=== PATIENT | male | born 1955 | race Caucasian/White ===

== ENCOUNTER 2017-06-01 16:20 | Emergency (ER) | payer BC ==
[2017-06-01 16:33] VITALS: BP 148/89
[2017-06-01] MEDS ORDERED: DOXYcycline CAP(*) 100 MG PO ONE (16:43)
--- NOTE | 2017-06-01 17:14 | UC ---
General HPI - HPI Summary HPI Summary: ONE HOUR [employer] TICK REMOVED TICK FROM UNDERNEATH RIGHT UNDERARM BY PATIENT. RED BURNING TENDER AREA WHERE TICK HAD BEEN EMBEDDED <24HRS. NO FEVERS. FEELING ' OUT OF SORTS' SINCE DISCOVERY OF TICK. NO JOINT SWELLING, OR PAIN. - History of Current Complaint Chief Complaint: UCSkin Stated Complaint: TICK BITE Time Seen by Provider: 06/01/17 16:32 Hx Obtained From: Patient Onset/Duration: Gradual Onset, Lasting Hours Onset Severity: Mild Current Severity: Mild Pain Intensity: 0 Associated Signs & Symptoms: Negative: Cough, Fever, Headache, Nausea, Syncope, Weakness - Allergy/Home Medications Allergies/Adverse Reactions: Allergies Allergy/AdvReac Type Severity Reaction Status Date / Time No Known Allergies Allergy Verified 06/01/17 16:26 Home Medications: Home Medications Azelastine 0.15% NASAL(NF) [Astepro 0.15% NASAL (NF)] 1 spray BOTH NARES BID [History Confirmed 06/01/17] Fluticasone NASAL * [Flonase *] 1 spray BOTH NARES BID 06/01/17 [History Confirmed 06/01/17] LevoCETirizine TAB (NF) [Xyzal TAB (NF)] 1 tab PO QAM 06/01/17 [History Confirmed 06/01/17] PMH/Surg Hx/FS Hx/Imm Hx Previously Healthy: Yes - Surgical History Surgical History: Yes Surgery Procedure, Year, and Place: Lt [facility]BOW - ARTHROSCOPIC - - Family History Known Family History: Negative: Respiratory Disease, Blood Disorder - Social History Occupation: Employed Full-time Lives: With Family Alcohol Use: Occasionally Substance Use Type: None Smoking Status (MU): Current Some Day Smoker Review of Systems Constitutional: Negative Skin: Rash - RIGHT AXILLA Eyes: Negative ENT: Negative Respiratory: Negative Cardiovascular: Negative Gastrointestinal: Negative Genitourinary: Negative Motor: Negative Neurovascular: Negative Musculoskeletal: Negative Neurological: Negative Psychological: Negative Is Patient Immunocompromised?: No All Other Systems Reviewed And Are Negative: Yes Physical Exam Triage Information Reviewed: Yes Appearance: Well-Appearing, No Pain Distress, Well-Nourished Vital Signs: Initial Vital Signs Temp 98.3 F 06/01/17 16:29 Pulse 83 06/01/17 16:29 Resp 16 06/01/17 16:29 BP 148/89 06/01/17 16:29 Pulse Ox 99 06/01/17 16:29 Vital Signs Reviewed: Yes Eye Exam: Normal ENT Exam: Normal ENT: Positive: Normal ENT inspection, TMs normal Dental Exam: Normal Neck exam: Normal Neck: Positive: Supple, Nontender, No Lymphadenopathy Respiratory Exam: Normal Respiratory: Positive: Chest non-tender, Lungs clear, Normal breath sounds, No respiratory distress Cardiovascular Exam: Normal Cardiovascular: Positive: RRR, No Murmur, Pulses Normal Abdominal Exam: Normal Musculoskeletal Exam: Normal Musculoskeletal: Positive: Strength Intact, ROM Intact Neurological Exam: Normal Psychological Exam: Normal Skin: Positive: rashes - ERYTHEMATOUS 0.5CM X0.5CM AREA RIGHT AXILLA Course/Dx - Differential Dx - Multi-Symptom Differential Diagnoses: Metabolic Abnormality, Sepsis Provider Diagnoses: TICK BITE PROPHYLAXIS Discharge - Discharge Plan Condition: Stable Disposition: HOME Patient Education Materials: Lyme Disease (ED), Tick Bite (ED) Referrals: Tammy Mckoy MD [Medical Doctor] - Images Front/Back of Body, Lg ([place]): 1 - ERYTHEMATOUS 0.5CM X0.5CM AREA RIGHT AXILLA
== END 2017-06-01 16:51 | disposition home or self-care (01) ==
LOC: UCEAST 16:20
DX: S40.861A Insect bite (nonvenomous) of right upper arm, initial encounter (principal); W57.XXXA Bitten or stung by nonvenomous insect and other nonvenomous arthropods, initial encounter; Y93.9 Activity, unspecified; Y92.9 Unspecified place or not applicable; Y99.9 Unspecified external cause status; F17.200 Nicotine dependence, unspecified, uncomplicated
CPT/HCPCS: 99212; A9270-GY; G0463

== ENCOUNTER 2017-12-06 17:55 | Emergency (ER) | payer BC ==
[2017-12-06 19:40] LABS: ABS Basophils 0.2 10^3/ul (0-0.2); ABS Eosinophils 0.1 10^3/ul (0-0.6); ABS Lymphocytes 2.9 10^3/ul (1.0-4.8); ABS Monocytes 1.2 10^3/ul (0-0.8); ABS Neutrophils 11.1 10^3/ul (1.5-7.7); ABS Nucleated RBC 0 10^3/ul; Eosinophil % 0.4 % (0-6); Hematocrit 41 % (42-52); Hemoglobin 14.1 g/dl (14.0-18.0); Lymphocyte % 18.7 % (25-47); Mean Corpuscular HGB Conc 34 g/dl (31-36); Mean Corpuscular Hemoglobin 31 pg (27-31); Mean Corpuscular Volume 90 fL (80-94); Nucleated Red Blood Cells % 0; Platelet Count 262 10^3/ul (150-450); Red Blood Count 4.62 10^6/ul (4.0-5.4); Red Cell Distribution Width 13 % (10.5-15); White Blood Count 15.4 10^3/ul (3.5-10.8)
[2017-12-06 19:57] LABS: EGFR Non-African American 32.4 (>60)
[2017-12-06 20:19] LABS: Urine Appearance Clear; Urine Blood 2+ (Negative); Urine Color Yellow; Urine Ketones Negative (Negative); Urine Protein Negative (Negative); Urine Specific Gravity 1.015 (1.010-1.030); Urine Urobilinogen Negative (Negative)
--- NOTE | 2017-12-06 20:22 | RAD ---
Indication: Left flank pain. CT of the abdomen and pelvis was performed without oral or IV contrast administration. Coronal and sagittal reconstructed images were obtained. Lung bases demonstrate no pleural fluid, pneumonia or pneumothorax. Heart demonstrates no pericardial effusion. Liver is normal in size. No focal lesions or intrahepatic ductal dilatation is noted. The gallbladder demonstrates no calcified gallstones. No pericholecystic fluid or wall thickening is identified. The spleen is normal in size. No adrenal masses are noted. The pancreas demonstrates no mass or pancreatic duct dilatation. There is left hydronephrosis present. There is a calculi in the left mid ureter at the pelvic inlet measuring up to 4 mm. The right kidney is unremarkable. The appendix is visualized and is unremarkable. No dilated loops of bowel are noted. Urinary bladder is otherwise unremarkable. IMPRESSION: 4 mm calculus in the distal left ureter at the L5 level. Left hydronephrosis is noted. Normal appendix.
[2017-12-06] MEDS ORDERED: Tamsulosin CAP* 0.4 MG PO ONE (20:32)
[2017-12-06] MEDS ORDERED: HYDROcodone/ACETAMIN 5-325 MG* 1 TAB PO PRN ×2 (20:33→20:43)
[2017-12-06] MEDS ORDERED: Ibuprofen TAB* 600 MG PO ONE (20:33)
[2017-12-06] MEDS ORDERED: Ondansetron ODT TAB* 4 MG PO PRN (20:34)
[2017-12-06] MEDS ORDERED: Ondansetron ODT TAB* 4 MG PO ONE (20:43)
--- NOTE | 2017-12-06 21:21 | ED ---
Cayla Mendez Thomas, scribed for Nickolas Monreal MD on 12/06/17 at 1944 . Abdominal Pain/Male - HPI Summary HPI Summary: The patient is a 62 year old male complaining of left-sided flank pain that began 24 hours ago. The pain is intermittent. The pain is alleviated by lying down. He took ibuprofen for the pain. He denies abdominal pain. He did not take any BMs today. Two days ago, the patient and his went to a restaurant and both had nausea and vomiting afterwards. - History of Current Complaint Chief Complaint: EDFlankPain Stated Complaint: FLANK PAIN Hx Obtained From: Patient Onset/Duration: Lasting Hours, Still Present Timing: Intermittent Severity Currently: Moderate Pain Intensity: 7 Pain Scale Used: 0-10 Numeric Location: Flank - left Aggravating Factor(s): Nothing Alleviating Factor(s): Other: - Lying down Associated Signs And Symptoms: Positive: Nausea, Vomiting - Allergies/Home Medications Allergies/Adverse Reactions: Allergies Allergy/AdvReac Type Severity Reaction Status Date / Time No Known Allergies Allergy Verified 12/06/17 18:04 Home Medications: Home Medications Azelas/Fluticasone/Sod Chlorid 1 spray BOTH NARES DAILY 12/06/17 [History Confirmed 12/06/17] [place]-3 Fatty Acids (Nf) [Fish Oil (NF)] 1,000 mg PO DAILY 12/06/17 [History Confirmed 12/06/17] PMH/Surg Hx/FS Hx/Imm Hx Endocrine/Hematology History: Denies: Hx Diabetes, Hx Thyroid Disease Cardiovascular History: Reports: Hx Hypertension Denies: Hx Hypercholesterolemia, Hx Pacemaker/ICD, Hx Peripheral Vascular Disease Respiratory History: Denies: Hx Asthma, Hx Chronic Obstructive Pulmonary Disease (COPD) GI History: Denies: Hx Ulcer History: Denies: Hx Kidney Stones, Hx Renal Disease Musculoskeletal History: Denies: Hx Arthritis, Hx Rheumatoid Arthritis, Hx Osteoporosis Sensory History: Denies: Hx Cataracts, Hx Contacts or Glasses, Hx Glaucoma, Hx Hearing Aid Opthamlomology History: Denies: Hx Cataracts, Hx Contacts or Glasses, Hx Glaucoma Neurological History: Denies: Hx Headaches, Hx Seizures, Hx Transient Ischemic Attacks (TIA) Psychiatric History: Denies: Hx Anxiety, Hx Depression, Hx Panic Disorder - Surgical History Surgery Procedure, Year, and Place: Lt [facility]BOW - ARTHROSCOPIC - - Immunization History Immunizations Up to Date: Yes Infectious Disease History: No Infectious Disease History: Denies: Hx Clostridium Difficile, Hx Hepatitis, Hx Human Immunodeficiency Virus (HIV), Hx of Known/Suspected MRSA, Hx Shingles, Hx Tuberculosis, Hx Known/ Suspected VRE, Hx Known/Suspected VRSA, History Other Infectious Disease, Traveled Outside the [place] in Last 30 Days - Family History Known Family History: Negative: Respiratory Disease, Blood Disorder - Social History Alcohol Use: Occasionally Substance Use Type: Reports: None Hx Tobacco Use: No Smoking Status (MU): Never Smoked Tobacco Review of Systems Negative: Fever Positive: Abdominal Pain - left flank, Vomiting, Nausea All Other Systems Reviewed And Are Negative: Yes Physical Exam - Summary Physical Exam Summary: Appearance: The patient is well-nourished in no acute distress and in no acute pain. Skin: The skin is warm and dry and skin color reflects adequate perfusion. HEENT: The head is normocephalic and atraumatic. The pupils are equal and reactive. The conjunctivae are clear and without drainage. Nares are patent and without drainage. Mouth reveals moist mucous membranes and the throat is without erythema and exudate. The external ears are intact. The ear canals are patent and without drainage. The tympanic membranes are intact. Neck: the neck is supple with full range of motion and non-tender. There are no carotid bruits. There is no neck vein distension. Respiratory: Chest is non-tender. Lungs are clear to auscultation and breath sounds are symmetrical and equal. Cardiovascular: Heart is regular rate and rhythm. There is no murmur or rub auscultated. There is no peripheral edema and pulses are symmetrical and equal. Abdomen: The abdomen is soft and non-tender. There are normal bowel sounds heard in all four quadrants and there is no organomegaly palpated. Musculoskeletal: There is no back tenderness noted. Extremities are non-tender with full range of motion. There is good capillary refill. There is no peripheral edema or calf tenderness elicited. Neurological: Patient is alert and oriented to person, place and time. The patient has symmetrical motor strength in all four extremities. Cranial nerves are grossly intact. Deep tendon reflexes are symmetrical and equal in all four extremities. Psychiatric: The patient has an appropriate affect and does not exhibit any anxiety or depression. Triage Information Reviewed: Yes Vital Signs On Initial Exam: Initial Vitals Temp Pulse Resp BP Pulse Ox 99 F 80 15 149/78 98 12/06/17 18:07 12/06/17 18:07 12/06/17 18:07 12/06/17 18:07 12/06/17 18:07 Vital Signs Reviewed: Yes Diagnostics - Vital Signs Vital Signs Temp Pulse Resp BP Pulse Ox 12/06/17 18:07 99 F 80 15 149/78 98 - Laboratory Lab Results: Lab Results 12/06/17 Range/Units 19:29 WBC 15.4 H (3.5-10.8) 10^3/ul RBC 4.62 (4.0-5.4) 10^6/ul Hgb 14.1 (14.0-18.0) g/dl Hct 41 L (42-52) % MCV 90 (80-94) fL MCH 31 (27-31) pg MCHC 34 (31-36) g/dl RDW 13 (10.5-15) % Plt Count 262 (150-450) 10^3/ul MPV 7.0 L (7.4-10.4) um3 Neut % (Auto) 71.9 (38-83) % Lymph % (Auto) 18.7 L (25-47) % [place] % (Auto) 7.7 H (0-7) % Eos % (Auto) 0.4 (0-6) % Baso % (Auto) 1.3 (0-2) % Absolute Neuts (auto) 11.1 H (1.5-7.7) 10^3/ul Absolute Lymphs (auto) 2.9 (1.0-4.8) 10^3/ul Absolute Monos (auto) 1.2 H (0-0.8) 10^3/ul Absolute Eos (auto) 0.1 (0-0.6) 10^3/ul Absolute Basos (auto) 0.2 (0-0.2) 10^3/ul Absolute Nucleated RBC 0 10^3/ul Nucleated RBC % 0 Result Diagrams: 12/06/17 19:29 12/06/17 19:29 Lab Statement: Any lab studies that have been ordered have been reviewed, and results considered in the medical decision making process. - CT CT Abdomen/Pelvis CT Interpretation: Positive (See Comments) - IMPRESSION: 4 mm calculus in the distal left ureter at the L5 level. Left hydronephrosis is noted. Normal appendix. Dr. Monreal has reviewed this report. CT Interpretation Completed By: Radiologist Re-Evaluation - Re-Evaluation First Eval Re-Evaluation Time: 20:29 Comment: Results discussed. Patient will be discharged. Abdominal Pain Fem Course/Dx - Course Course Of Treatment: Mr. Menjivar presented with about 24 hours of intermittent left flank pain and was found to have a 4 mm calculus in the distal left ureter with a normal U/A and moderate hydronephrosis. I will treat him with [place] and Flomax. His BUN and creatinine are a litlle elevated but he had a recent AGE and he has received IV NS here so I think he is OK to take ibuprofen for a few days only. He sounds like he has been having spells of ureteral spasm and I think it is necessary. He will F/U with Jayne Matthews and [facility]. - Diagnoses Provider Diagnoses: Kidney stones Discharge - Sign-Out/Discharge Documenting (check all that apply): Discharge - Discharge Plan Condition: Stable Disposition: HOME Prescriptions: HYDROcodone/ACETAMIN 5-325 MG* [[place] 5-325 TAB*] 1 tab PO Q6H PRN #20 tab MDD 4 PRN Reason: Pain Ondansetron ODT TAB* [Zofran Odt TAB*] 4 mg PO Q6H PRN #20 tab.odt PRN Reason: Nausea/Vomiting Tamsulosin CAP* [Flomax CAP*] 0.4 mg PO DAILY #7 cap Patient Education Materials: Ibuprofen (By mouth), Kidney Stones (ED) Referrals: Aknush Matthews MD [Medical Doctor] - 2 Days Jacky Botello MD [Medical Doctor] - 2 Days Additional Instructions: Follow up with urology in two days. I have given you referrals to Dr. Botello and Dr. Matthews. I recommend ibuprofen for the pain. Return to the emergency department for new or worsening symptoms. - Billing Disposition and Condition Condition: STABLE Disposition: HOME The documentation as recorded by the Cayla sotelo Thomas accurately reflects the service I personally performed and the decisions made by me, Nickolas Monreal MD.
[2017-12-06] MEDS ORDERED: O ndansetron ODT 4MG 2TAB PRPK 4 MG PAK PO ONE (21:25)
[2017-12-06 21:38] VITALS: BP 129/78
== END 2017-12-06 21:41 | disposition home or self-care (01) ==
LOC: ED 17:55
DX: N13.2 Hydronephrosis with renal and ureteral calculous obstruction (principal); R11.2 Nausea with vomiting, unspecified; I10 Essential (primary) hypertension
CPT/HCPCS: 36415; 74176; 80053; 81003; 81015; 83605; 85025; 86140; 87086; 99283; A9270-GY

== ENCOUNTER 2017-12-10 07:38 | Observation (INO) | payer BC ==
[2017-12-10] MEDS ORDERED: NS 0.9% 1000 ML* 1,000 ML IV ONE ×2 (07:44→10:30)
[2017-12-10] MEDS ORDERED: Morphine INJ* 4 MG/ML 1 ML CARPUJECT IV PRN (07:44)
[2017-12-10] MEDS ORDERED: Ondansetron INJ* 2 MG/ML VIAL IV ONE (07:44)
[2017-12-10] MEDS ORDERED: Ketorolac INJ* 30 MG/ML 1 ML VIAL IV PUSH ONE (07:47)
[2017-12-10] MEDS ORDERED: Morphine VIAL* 4 MG/ML VIAL (1 ml vial) IV ONE ×2 (07:52→10:58)
[2017-12-10 08:10] LABS: ABS Basophils 0.2 10^3/ul (0-0.2); ABS Eosinophils 0.1 10^3/ul (0-0.6); ABS Lymphocytes 2.8 10^3/ul (1.0-4.8); ABS Monocytes 0.9 10^3/ul (0-0.8); ABS Neutrophils 12.4 10^3/ul (1.5-7.7); ABS Nucleated RBC 0 10^3/ul; Eosinophil % 0.7 % (0-6); Hematocrit 40 % (42-52); Hemoglobin 13.7 g/dl (14.0-18.0); Mean Corpuscular HGB Conc 35 g/dl (31-36); Mean Corpuscular Hemoglobin 31 pg (27-31); Mean Corpuscular Volume 89 fL (80-94); Mean Platelet Volume 7.1 um3 (7.4-10.4); Nucleated Red Blood Cells % 0; Platelet Count 301 10^3/ul (150-450); Red Blood Count 4.44 10^6/ul (4.0-5.4); Red Cell Distribution Width 13 % (10.5-15); White Blood Count 16.4 10^3/ul (3.5-10.8)
[2017-12-10] MEDS ORDERED: Morphine VIAL* 4 MG/ML VIAL (1 ml vial) IV PRN ×2 (08:15→13:10)
[2017-12-10 08:26] LABS: EGFR Non-African American 33.6 (>60)
--- NOTE | 2017-12-10 08:40 | RAD ---
HISTORY: Flank pain COMPARISONS: CT dated December 06, 2017 VIEWS: Frontal views of the abdomen. FINDINGS: BOWEL: There is a nonspecific bowel gas pattern, with nondilated small bowel gas noted. There is a large amount of stool within the colon. CALCULI: There are no appreciable calculus, though evaluation is limited by overlying bowel. The left ureteral stone noted on the previous CT examination is not well-visualized on the current examination. BONES AND SOFT TISSUES: There are no osseous abnormalities. OTHER FINDINGS: The lung bases are clear. There is no subphrenic gas. IMPRESSION: THE LEFT URETERAL STONE NOTED ON THE PREVIOUS CT EXAMINATION IS NOT WELL-VISUALIZED ON THE CURRENT EXAMINATION.
[2017-12-10 10:29] LABS: Urine Appearance Clear; Urine Blood Negative (Negative); Urine Color Yellow; Urine Ketones 1+ (Negative); Urine Protein Negative (Negative); Urine Specific Gravity 1.025 (1.010-1.030); Urine Urobilinogen Negative (Negative)
[2017-12-10] MEDS ORDERED: Tamsulosin CAP* 0.4 MG PO ONE (10:35)
--- NOTE | 2017-12-10 12:59 | ED ---
Conrado Mendez Angela, scribed for Devin Fournier MD on 12/10/17 at 0748 . Abdominal Pain/Male - HPI Summary HPI Summary: This pt is a 62 y/o male presenting to [facility] c/o left flank pain x5 days. Pt reports his pain has been worsening in intensity since 5 days ago. He was seen in the ED 4 days ago and had a CT that showed 4 mm calculus in the distal left ureter. Pt was discharged home with follow up from Dr. Matthews. He saw Dr. Matthews 2 days ago and was told that he had a 1.5 cm left kidney stone and this would pass on its own. Today pt presents with increased pain and rates his pain 10/10 in severity. He additionally notes nausea. - History of Current Complaint Chief Complaint: EDFlankPain Stated Complaint: FLANK PAIN/ABD PAIN Time Seen by Provider: 12/10/17 07:42 Hx Obtained From: Patient Onset/Duration: Lasting Days, Still Present Timing: Lasting Days Severity Currently: Severe Pain Intensity: 10 Pain Scale Used: 0-10 Numeric Location: Flank - left Radiates: No Aggravating Factor(s): Nothing Alleviating Factor(s): Nothing Associated Signs And Symptoms: Positive: Nausea. Negative: Fever, Chest Pain, Back Pain - Allergies/Home Medications Allergies/Adverse Reactions: Allergies Allergy/AdvReac Type Severity Reaction Status Date / Time No Known Allergies Allergy Verified 12/10/17 07:41 Home Medications: Home Medications Azelastine/Fluticasone HEATH(NF [Dymista(NF)] 1 spray BOTH NARES DAILY 12/10/17 [ History Confirmed 12/10/17] PMH/Surg Hx/FS Hx/Imm Hx Endocrine/Hematology History: Denies: Hx Diabetes, Hx Thyroid Disease Cardiovascular History: Reports: Hx Hypertension Denies: Hx Hypercholesterolemia, Hx Pacemaker/ICD, Hx Peripheral Vascular Disease Respiratory History: Denies: Hx Asthma, Hx Chronic Obstructive Pulmonary Disease (COPD) GI History: Denies: Hx Ulcer History: Denies: Hx Kidney Stones, Hx Renal Disease Musculoskeletal History: Denies: Hx Arthritis, Hx Rheumatoid Arthritis, Hx Osteoporosis Sensory History: Denies: Hx Cataracts, Hx Contacts or Glasses, Hx Glaucoma, Hx Hearing Aid Opthamlomology History: Denies: Hx Cataracts, Hx Contacts or Glasses, Hx Glaucoma Neurological History: Denies: Hx Headaches, Hx Seizures, Hx Transient Ischemic Attacks (TIA) Psychiatric History: Denies: Hx Anxiety, Hx Depression, Hx Panic Disorder - Surgical History Surgery Procedure, Year, and Place: Lt ELBOW - ARTHROSCOPIC - Infectious Disease History: No Infectious Disease History: Denies: Hx Clostridium Difficile, Hx Hepatitis, Hx Human Immunodeficiency Virus (HIV), Hx of Known/Suspected MRSA, Hx Shingles, Hx Tuberculosis, Hx Known/ Suspected VRE, Hx Known/Suspected VRSA, History Other Infectious Disease, Traveled Outside the [place] in Last 30 Days - Family History Known Family History: Negative: Respiratory Disease, Blood Disorder - Social History Alcohol Use: Occasionally Substance Use Type: Reports: None Hx Tobacco Use: No Smoking Status (MU): Never Smoked Tobacco Review of Systems Negative: Fever, Chills ENT: Negative Cardiovascular: Negative Positive: Abdominal Pain Genitourinary: Negative Musculoskeletal: Negative Neurological: Negative All Other Systems Reviewed And Are Negative: Yes Physical Exam - Summary Physical Exam Summary: VITAL SIGNS: Reviewed. GENERAL: Patient is a well-developed and nourished male who is lying comfortable in the stretcher. Patient is in distress secondary to pain. HEAD AND FACE: Normocephalic and atraumatic. EYES: PERRLA, EOMI x 2, No injected conjunctiva. EARS: Hearing grossly intact. Ear canals and tympanic membranes are WNL. MOUTH: Oropharynx within normal limits. NECK: Supple, trachea is midline, no adenopathy, no JVD. CHEST: Symmetric, no tenderness at palpation LUNGS: Clear to auscultation bilaterally. No wheezing or crackles. CVS: RRR, S1 and S2 present, no murmurs or gallops appreciated. ABDOMEN: Soft. Left flank pain. Left costovertebral angle tenderness. No signs of distention. Positive bowel sounds. No rebound no guarding, and no masses palpated. No abdominal bruit or pulsations. EXTREMITIES: FROM in all major joints, no edema, no cyanosis or clubbing. NEURO: Alert and oriented x 3. No acute neurological deficits. Speech is normal. SKIN: Dry and warm Triage Information Reviewed: Yes Vital Signs On Initial Exam: Initial Vitals Temp Pulse Resp BP Pulse Ox 98.6 F 78 20 145/85 100 12/10/17 07:38 12/10/17 07:38 12/10/17 07:38 12/10/17 07:38 12/10/17 07:38 Vital Signs Reviewed: Yes Diagnostics - Vital Signs Vital Signs Temp Pulse Resp BP Pulse Ox 12/10/17 07:38 98.6 F 78 20 145/85 100 - Laboratory Result Diagrams: 12/10/17 07:57 12/10/17 07:57 Lab Statement: Any lab studies that have been ordered have been reviewed, and results considered in the medical decision making process. - Radiology Abdomen XR Xray Interpretation: Positive (See Comments) - IMPRESSION: The left ureteral stone noted on the previous CT examination is not well visualized on the current examination. Dr. Fournier has reviewed this radiology report. Radiology Interpretation Completed By: Radiologist - EKG 08:00 Cardiac Rate: NL EKG Rhythm: Sinus Rhythm - at 62 bpm EKG Interpretation: No ST elevations. Re-Evaluation - Re-Evaluation First Eval Re-Evaluation Time: 10:35 Comment: Pt is pain free and is comfortable. He will be given more fluids and Flomax. Abdominal Pain Fem Course/Dx - Course Assessment/Plan: This pt is a 62 y/o male presenting to [facility] c/o left flank pain x5 days. Pt reports his pain has been worsening in intensity since 5 days ago. He was seen in the ED 4 days ago and had a CT that showed 4 mm calculus in the distal left ureter. Pt was discharged home with follow up from Dr. Matthews. He saw Dr. Matthews 2 days ago and was told that he had a 1.5 cm left kidney stone and this would pass on its own. Today pt presents with increased pain and rates his pain 10/10 in severity. He additionally notes nausea. Initially the pt came with severe distress secondary to pain. We obtained an IV access and gave him IV fluids. He was given Toradol for the pain as he has history of kidney stone and left flank pain. The pain continued thus he was given morphine and Zofran, and his pain slightly improved. After 2 L of IV fluids, pt continues to have pain therefore he was given another dose of morphine and Flomax. I discussed the case with Dr. Matthews, urologist, who will take the pt to the OR. He recommends to admit the pt to the hospitalist for pain control. I discussed with Dr. Ballard, hospitalist, who has agreed to admit the pt. Pt is hemodynamically stable, alert and oriented x3. - Diagnoses Provider Diagnoses: Kidney stone, Renal colic, Intractable pain, Renal insufficiency - Provider Notifications Discussed Care Of Patient With: Ankush Matthews Time Discussed With Above Provider: 08:36 Instructed by Provider To: Other - I discussed pt care with Dr. Matthews, urologist, who will come see the pt in the ED. [12:29] I spoke with Dr. Ballard, hospitalist, who has agreed to admit the pt. Discharge - Sign-Out/Discharge Documenting (check all that apply): Discharge/Admit/Transfer - [place] [facility] [place]charge Plan Condition: Stable Disposition: ADMITTED TO [facility] Referrals: Burt Camacho MD [Primary Care Provider] - The documentation as recorded by the Conrado sotelo Angela accurately reflects the service I personally performed and the decisions made by , Devin Fournier MD.
[2017-12-10] MEDS ORDERED: Acetaminophen TAB* 325 MG PO PRN (13:04)
[2017-12-10] MEDS ORDERED: cefTRIAXone VIAL(*) 2,000 MG in NS 0.9% 50 ML* 50 ML IVPB ONE (13:06)
[2017-12-10] MEDS ORDERED: NS 0.9% 1000 ML* 1,000 ML IV SCH (13:15)
[2017-12-10] MEDS ORDERED: cefTRIAXone(*) 2 GM in NS 0.9% 100 ML* 100 ML IVPB ONE (14:00)
--- NOTE | 2017-12-10 16:04 | HP ---
CC: Dr. Camacho; Dr. Matthews* HISTORY AND PHYSICAL: DATE OF ADMISSION: 12/10/17 PRIMARY CARE PROVIDER: Dr. Camacho. ATTENDING PHYSICIAN WHILE IN THE HOSPITAL: Dr. Lucas Ballard* (report dictated by Deric Iyer NP). CHIEF COMPLAINT: Left flank pain. HISTORY OF PRESENT ILLNESS: Mr. Menjivar is a 62-year-old male patient. He has a history of nephrolithiasis, hypertension, hyperlipidemia, and a history of allergies. He comes into the ER today. He said he was seen here on Friday, diagnosed with nephrolithiasis and was being treated outpatient with Dr. Matthews. He says that he had intermittent flank pain throughout the weekend, but things were improving Friday. He saw Dr. Matthews. There was concern because his creatinine was little elevated, but the stone had moved down to the UVJ and they thought that it was going to pass. So, they continued with conservative management and actually, yesterday the patient felt well. He says he did not have any more discomfort. He said things were feeling better. He, unfortunately, though today around 3 to 4 in the morning, he had sudden onset of a sharp stabbing pain, it just got progressively worse, with associated nausea, in that left flank. No fevers or chills reported. No dysuria or frequency was reported with urination, but he was concerned because the pain just did not get better. It was getting much worse and he came into the ER. Preceding this, him and his significant other did have an episode of nausea, vomiting, and diarrhea after going out to eat on , but he has no longer had any more vomiting and no longer had any more diarrhea. He said he has had a formed bowel movement 2 days ago. He denied any chest pain or shortness of breath. He says he has been exercising pretty routinely even before this has happened, but he has not in the last few days. He says he can walk up a flight of stairs with no chest discomfort or chest pain. He came into the emergency department today, he was evaluated because it was found that he had elevated white count, because of the worsening pain, and the creatinine being elevated. We were asked to evaluate for admission for most likely ureteral stent placement. PAST MEDICAL HISTORY: Significant for: 1. Nephrolithiasis. 2. Hypertension. 3. Hyperlipidemia. 4. Seasonal allergies. PAST SURGICAL HISTORY: The patient has had a left elbow surgery only. MEDICATIONS: Home medications include: 1. Flomax 0.4 mg p.o. daily. 2. Zofran 4 mg every 6 hours as needed. 3. Fish oil 1000 mg p.o. daily. 4. Lisinopril 20 mg daily. 5. Levocetirizine 1 tablet p.o. daily. 6. [place] 1 tablet p.o. every 6 hours as needed. 7. Dymista 1 spray both nares daily. ALLERGIES TO MEDICATIONS: Include no known drug allergies. FAMILY HISTORY: Mother had a history of CVA and dementia. Father had an MS at 74. SOCIAL HISTORY: The patient does not smoke. He rarely drinks alcohol. Surrogate decision maker is his significant other, Heike. REVIEW OF SYSTEMS: There was no documented fever. He denies any significant weight change. There was no double vision. He denies having any ear discharge. There is no rhinorrhea. There is no sore throat. There was no thyroid enlargement. Denies having any chest pain. There was no orthopnea. He denies having any nocturnal dyspnea. He denies having any abdominal pain, with the exception he does have some right-sided flank pain. He did admit to having some nausea. There is no vomiting. No dysuria, there is no frequency. Denies having any seizure, there is no loss of consciousness. No pruritus and no skin ulceration. Review of 14 systems completed, all others negative. PHYSICAL EXAMINATION GENERAL: At this time, Mr. Menjivar is a 62-year-old male patient. He appears to be well nourished, well developed. He does not appear to be in any acute distress. He is sitting in the ED stretcher. VITAL SIGNS: Blood pressure 109/68, pulse of 59, respirations 18, O2 sat 95%, temperature 98.6. HEENT: Head is atraumatic, normocephalic. Eyes: EOMs are intact. Sclerae anicteric and not pale. Throat: Oral mucosa appears to be moist. No oropharyngeal erythema. NECK: Supple. LUNGS: Clear to auscultation bilaterally. No wheezes, rales, or rhonchi. HEART: Sounds S1 and S2. Regular rate and rhythm. No murmurs, rubs, or gallops. ABDOMEN: Soft, it was flat, nontender. Bowel sounds present. EXTREMITIES: Pulses were 2+ throughout. He is moving all 4 extremities with 5/ 5 strength. NEUROLOGIC: The patient is awake, alert, and is oriented x3. No gross focal deficits. SKIN: Intact. DIAGNOSTIC STUDIES/LAB DATA: Revealed a WBC of 16.4, RBC of 4.44, hemoglobin of 13.7, hematocrit of 40, platelet count of 301. Sodium of 138; potassium of 4.0; chloride of 105; bicarb of 21; his BUN was 24; creatinine was 2.03, his baseline is 1.2; his glucose is 115; calcium 9.8. Total bili 0.8, AST 13, ALT 15, alk phos 37. CRP is 87. Albumin of 3.9. Lipase of 20. Urine showed 1+ ketones. He did have an abdominal x-ray obtained today. He had a renal ultrasound done at Dr. Matthews's office. The x-ray today shows left ureteral stone noted on previous CT exam, but not well visualized on the current exam. He did have an EKG obtained today, which does show normal sinus rhythm, no ST elevations or T-wave inversions were noted. He did have abdominal pelvis CT scan on 12/06/17, which did show impression: 4- mm calculus in the distal left ureter at L5 level, left hydronephrosis noted. Normal appendix. He did have an ultrasound again, verbal report was that the stone was just at the UVJ and it was about 5 mm with mild hydro. Old medical records reviewed. ASSESSMENT AND PLAN: Mr. Menjivar is a 62-year-old male patient coming in the ED today with complaints of flank pain evaluation, found to have persistent elevated creatinine and in addition to this, concern for nephrolithiasis. He had been admitted under observation status for: 1. Nephrolithiasis. At this point, Dr. Matthews will be evaluating the patient. I suspect he probably does have some obstructive uropathy thus causing the elevation in his creatinine. He most likely will need cystoscopy with stent placement. Dr. Matthews plans on doing this later today around 5 o'clock and we will go ahead and continue to follow his creatinine and hydrate the patient and he will be n.p.o. 2. Elevated creatinine. Probably secondary to obstructive uropathy. Again, Dr. Matthews will be evaluating and he will most likely be placing a stent later today and this will be followed up outpatient, and continue with IV hydration. I suspect the creatinine to decrease after the stent was placed and I am holding any nephrotoxic agents. 3. Hypertension. His blood pressure is stable here in the 100. We will hold his lisinopril for time being. 4. Hyperlipidemia. Continue with diet modifications and his omega-3 fatty acids. 5. Seasonal allergies. Continue meds as prescribed. I have held them for now , but he can restart them when he is discharged. 6. Leukocytosis. This could be leukemoid reaction due to the pain. However, I am concerned that he could have underlying infection. Fortunately, his urine does appear to be clear. I am sending blood cultures and lactate. I will give him some antibiotics here. If he does stay overnight, I will continue the antibiotics. 7. DVT prophylaxis. Ordered SCDs. 8. Fluids, electrolytes, and nutrition. He is n.p.o. 9. Code status. Full code. TIME SPENT: On the admission was approximately 60 minutes, greater than half the time was spent [id number] with the patient obtaining my history and physical, the other half of the time was spent on going over the plan of care with the patient and implementing the place of care. I did discuss the plan of care with my attending, Dr. Ballard; he is in agreement. DERIC IYER, JULIA [id number]/[facility] #: [id number] HERNESTO
[2017-12-10] MEDS ORDERED: Morphine INJ* 10 MG/ML 1 ML CARPUJECT ONE (16:35)
[2017-12-10] MEDS ORDERED: Iohexol 180 (CONTRAST) 10 ML SDV IV ONE (18:00)
[2017-12-10] MEDS ORDERED: fentaNYL* 50 MCG/ML 2 ML VIAL (100 MCG VIAL) ONE (18:01)
[2017-12-10] MEDS ORDERED: Chloroprocaine 2%* 20 ML VIAL ONE (18:01)
[2017-12-10] MEDS ORDERED: Midazolam* 1 MG/ML 5 ML VIAL (5 MG) ONE (18:01)
[2017-12-10] MEDS ORDERED: Dexamethasone IV* 4 MG/ML 1 ML (4 MG) ONE (18:53)
[2017-12-10] MEDS ORDERED: HYDROmorphone INJ* 1 MG/ML CARPUJECT SYRINGE IV PRN (19:11)
[2017-12-10] MEDS ORDERED: Naloxone* 0.4 MG/ML 1 ML VIAL IV PRN (19:11)
[2017-12-10] MEDS ORDERED: fentaNYL* 50 MCG/ML 2 ML VIAL (100 MCG VIAL) IV PRN (19:11)
[2017-12-10] MEDS ORDERED: Ondansetron INJ* 2 MG/ML VIAL IV PRN (19:11)
[2017-12-10] MEDS ORDERED: Ondansetron INJ* 2 MG/ML VIAL ONE (19:14)
--- NOTE | 2017-12-10 21:35 | OP ---
CC: Dr. Camacho* OPERATIVE REPORT: DATE OF OPERATION: 12/10/17 - Inpatient, room SSU 332-01 DATE OF : 57 SURGEON: Ankush Matthews MD ANESTHESIOLOGIST: Cordell Vicente MD ANESTHESIA: Spinal. PRE-OP DIAGNOSES: 1. Distal left ureteral calculus. 2. Renal colic due to above. POST-OP DIAGNOSES: 1. Distal left ureteral calculi. 2. Renal colic due to above. OPERATIVE PROCEDURE: 1. Cystoscopy. 2. Left ureteroscopy and extraction of the distal left ureteral calculi. 3. Left retrograde pyelography and placement of left ureteral stent (6-Syrian). INDICATION FOR PROCEDURE: Mr. Menjivar is a 62-year-old white male who presented to the emergency room about 4 days ago with symptoms of left renal colic and was noted on noncontrast CT of the abdomen and pelvis to have a 3 to 4 mm calculus in the proximal to mid left ureter and small left renal calculi. He was managed conservatively. He was evaluated in my office 2 days ago and had a renal and full bladder ultrasound, which showed a 4 to 5 mm calculus in the distal left ureter just proximal to the ureterovesical junction. This was associated with mild hydronephrosis. He was continued to be managed conservatively. He presented to the emergency room early this morning with recurrence of the renal colic requiring multiple doses of narcotics for pain control. His serum creatinine was elevated at 2.0. His white count was 16,000. He was afebrile and his urinalysis was negative for infection. The patient was admitted for pain management and was given 2 g of Rocephin IV. He is taken to the operating room for stone extraction. PATHOLOGY: At cystoscopy, the penile and bulbar urethrae looked normal. The prostatic urethra measured about 2.5 cm in length and there was only minimal degree of obstruction by the prostate. The ureteral orifices were rather close to the bladder neck. Upon introduction of the guidewire into the left orifice, there was a gush of concentrated and rather bloody looking urine that drained out of the left orifice. Upon left ureteroscopy, there was a cluster of calculi in the distal left ureter just proximal to the intramural portion of the ureter. The larger fragment measured about 5 mm and there were 3 smaller fragments measuring about 2 mm each. Following drainage of the left kidney, retrograde pyelography showed minimal hydronephrosis. DESCRIPTION OF PROCEDURE: After successful spinal anesthesia, the patient was placed in the lithotomy position and was prepped and draped for cystoscopy. Cystoscopy was performed. The bladder was inspected and the above findings were noted. A flexible-tip guidewire was then introduced into the left orifice and positioned in the area of the renal pelvis. The gush of concentrated and rather bloody urine was noted from the orifice adjacent to the wire. A size 6.5 semi-rigid ureteroscope was then introduced inside the bladder. A flexible-tip guidewire was introduced through the port of the ureteroscope and the flexible tip was passed inside the left orifice alongside the guidewire. That allowed the atraumatic introduction of the ureteroscope into the left ureter. The stone fragments were then noted. It was felt they were small enough that should be able to be extracted without having to break them with the laser. A basket was deployed and the fragments were then extracted with minimal trauma to the ureteral wall. Final inspection showed edema at the site of the impacted stones. There was no injury to the ureter and no residual stone fragments noted. Retrograde pyelography was then performed. A size 6-Syrian stent was then placed with the proximal end coiling in the renal pelvis and the distal end coiling inside the bladder. There was good drainage of contrast from the kidney and no extravasation. The larger stone fragments were then extracted from the bladder and sent for stone analysis. The bladder was emptied and the cystoscope was removed. The patient tolerated the procedure well and left the operating room in good condition. The plan is to leave the stent in place for about 10 days. It will be removed in the office under local anesthesia. [id number]/[facility] #: [id number] [facility]ITALLevi
--- NOTE | 2017-12-10 21:40 | RAD ---
CPT II Codes: G9500 INDICATION: Left-sided stone removal. Fluoroscopic services provided for referring physician. 3 spot images demonstrates placement of a left ureteral stent isn't dilated left renal collecting system. IMPRESSION: Left ureteral stent in place.
[2017-12-10] MEDS ORDERED: HYDROcodone/ACETAMIN 5-325 MG* 1 TAB PO PRN (22:25)
[2017-12-10] MEDS ORDERED: Ondansetron ODT TAB* 4 MG PO PRN (22:49)
[2017-12-11 05:34] LABS: ABS Basophils 0 10^3/ul (0-0.2); ABS Eosinophils 0 10^3/ul (0-0.6); ABS Lymphocytes 1.4 10^3/ul (1.0-4.8); ABS Monocytes 0.4 10^3/ul (0-0.8); ABS Neutrophils 6.2 10^3/ul (1.5-7.7); ABS Nucleated RBC 0 10^3/ul; Eosinophil % 0.1 % (0-6); Hematocrit 34 % (42-52); Hemoglobin 11.6 g/dl (14.0-18.0); Lymphocyte % 17.1 % (25-47); Mean Corpuscular HGB Conc 35 g/dl (31-36); Mean Corpuscular Hemoglobin 31 pg (27-31); Mean Corpuscular Volume 90 fL (80-94); Mean Platelet Volume 7.4 um3 (7.4-10.4); Nucleated Red Blood Cells % 0; Platelet Count 225 10^3/ul (150-450); Red Blood Count 3.72 10^6/ul (4.0-5.4); Red Cell Distribution Width 13 % (10.5-15)
[2017-12-11 05:38] LABS: INR 1.02 (0.77-1.02)
[2017-12-11 05:49] LABS: EGFR Non-African American 40.1 (>60)
[2017-12-11] MEDS ORDERED: Azelastine/Fluticasone NAS(NF) BTL BOTH NARES SCH (09:00)
[2017-12-11] MEDS ORDERED: Cetirizine* 10 MG TAB PO SCH (09:00)
[2017-12-11] MEDS ORDERED: cefTRIAXone(*) 1 GM in NS 0.9% 50 ML* 50 ML IVPB ONE (09:00)
[2017-12-11] MEDS ORDERED: Lisinopril TAB* 10 MG PO SCH (09:00)
[2017-12-11] MEDS ORDERED: OMEGA-3 FATTY ACIDS (NF) 1,000 MG CAP PO SCH (09:00)
--- NOTE | 2017-12-11 10:27 | DS ---
CC: Dr. Camacho* DISCHARGE SUMMARY: DATE OF ADMISSION: 12/10/17 DATE OF DISCHARGE: 12/11/17 FINAL DIAGNOSES: 1. Left ureteral calculi. 2. Left renal colic due to left ureteral calculi. 3. Essential hypertension. 4. Hyperlipidemia. OPERATION: 1. Cystoscopy. 2. Left ureteroscopy and extraction of distal left ureteral calculi. 3. Left retrograde pyelography and placement of left ureteral stent on . HISTORY: Mr. Menjivar is a 62-year-old male who presented to the emergency room 4 days prior to admission with symptoms of left renal colic. There was no associated fever or chills. He had a noncontrast CT of the abdomen and pelvis , which showed a 4 mm calculus in the proximal left ureter associated with mild hydronephrosis and there were small left renal calculi. The patient was managed conservatively and was sent home on tamsulosin and on pain medication as needed. I evaluated him in my office 2 days later and the patient had a renal ultrasound in my office, which showed the calculus to have migrated into the distal left ureter just proximal to the ureterovesical junction. There was associated mild hydronephrosis, but there were reactive changes around the left kidney, possibly indicating extravasation. The patient continued to be managed conservatively and the next day he was feeling much better. There was a little bit of concern because his serum creatinine when he was discharged from the emergency room had gone up to 2.0. The plan was to repeat his serum creatinine on that day. The patient presented back to the emergency room early in the morning on with recurrent left renal colic. His white count was elevated at 16,000. His creatinine was still elevated at 2.0. He, however, was not febrile. The pain was rather difficult to control. It was then decided to take him to the operating room for stone extraction. PAST MEDICAL HISTORY: 1. He has hypertension and is maintained on lisinopril 20 mg daily. 2. He has hyperlipidemia, on fish oil. 3. He has seasonal allergies, on treatment. ALLERGIES: He denies any allergies to medications. SOCIAL HISTORY: He is a nonsmoker. FAMILY HISTORY: Negative for renal diseases or calculi. COURSE IN HOSPITAL: The patient was admitted for IV fluid and pain control. He was then taken to the operating room, where he underwent an uncomplicated cystoscopy, left ureteroscopy, and extraction of several small distal ureteral calculi with the largest measuring 5 mm. I suspect that some of the stones in the left kidney had migrated into the distal ureter and that explained a number of stones noted at ureteroscopy. The patient had also placement of a left ureteral stent. Because of his elevated white count on admission and the elevated creatinine, he was kept overnight for observation. He had a very smooth night. His pain completely resolved. Repeat lab work in the morning showed his creatinine down to 1.7 and the white count is down to 8000. The patient is being discharged home on his preadmission medications. Instructions were given for followup care. He will be seen in the office in 10 days for removal of the ureteral stent. [id number]/[facility] #: [id number] HERNESTO
[2017-12-11 11:29] VITALS: BP 117/51
[2017-12-11] MEDS ORDERED: cefTRIAXone(*) 1 GM in NS 0.9% 50 ML* 50 ML IVPB SCH (14:00)
== END 2017-12-11 12:50 | disposition home or self-care (01) ==
LOC: ED 07:38 → MEDTELE 12:29 → SSU 21:20
PROVIDERS: ADMIT Internal Medicine; ATTEND Urology
PROC: 0T778DZ Dilation of Left Ureter with Intraluminal Device, Via Natural or Artificial Opening Endoscopic (ICD-10-PCS; 2017-12-10)
PROC: BT1FZZZ Fluoroscopy of Left Kidney, Ureter and Bladder (ICD-10-PCS; 2017-12-10)
PROC: 0TC78ZZ Extirpation of Matter from Left Ureter, Via Natural or Artificial Opening Endoscopic (ICD-10-PCS; principal; 2017-12-10 17:00)
DX: N13.2 Hydronephrosis with renal and ureteral calculous obstruction (principal); I10 Essential (primary) hypertension; E78.5 Hyperlipidemia, unspecified; D72.829 Elevated white blood cell count, unspecified; R94.4 Abnormal results of kidney function studies; Z79.899 Other long term (current) drug therapy; R10.9 Unspecified abdominal pain
CPT/HCPCS: 36415; 74019; 74420; 80048; 80053; 81003; 82365; 83605; 83690; 85025; 85610; 86140; 87040; 88300; 93005; 96365; 96375; 96376; 99284; A9270-GY; C1876; G0378; J0696; J1100; J1885; J2250; J2270; J2400; J2405; J3010